=== PATIENT | male | born 1955 | race Caucasian/White ===

== ENCOUNTER 2017-11-24 09:31 | Emergency (ER) | END 2017-11-24 11:46 | disposition home or self-care (01) ==

== ENCOUNTER 2018-01-24 13:39 | Emergency (ER) | END 2018-01-24 14:14 | disposition home or self-care (01) ==

== ENCOUNTER 2018-07-22 22:26 | Emergency (ER) | END 2018-07-22 23:06 | disposition home or self-care (01) ==